=== PATIENT | female | born 1990 | race Caucasian/White ===

== ENCOUNTER 2016-12-13 10:57 | Emergency (ER) | payer BC ==
[~2016-12-13] VITALS: Ht 172.7 cm; Wt 68.0 kg
[2016-12-13 11:07] VITALS: BP 123/71; PULSE 80; RESP 20; TEMP 97.8; O2SAT 96
--- NOTE | 2016-12-13 11:12 | NUR ---
Pt placed to ER waiting room in stable condition.
--- NOTE | 2016-12-13 12:11 | NUR ---
Patient to ER bed 4 to gown for evaluation. Side rails up. Report given to NIC SUAZO.
--- NOTE | 2016-12-13 12:15 | NUR ---
ER at bedside examining patient.
--- NOTE | 2016-12-13 12:20 | NUR ---
Pt presents to Ed c/o urinary retentionx 2wks worsening last 2 days. Pt reports pressure during urination unable to empty bladder. Pt is at 12wks . Pt denies signifcant med hx.
[2016-12-13 13:30] LABS: BILIRUBIN,URINE NEGATIVE (NEGATIVE); BLOOD, URINE NEGATIVE (NEGATIVE); CLARITY/URINE SL HAZY (CLEAR); COLOR,URINE YELLOW (YELLOW); GLUCOSE,URINE NEGATIVE (NEGATIVE); KETONES,URINE NEGATIVE (NEGATIVE); LEUKOCYTE ESTERASE ,URINE NEGATIVE (NEGATIVE); NITRITE, URINE NEGATIVE (NEGATIVE); PH,URINE 5.5 (5.0-8.0); PROTEIN URINE NEGATIVE (NEGATIVE); UROBILINOGEN,URINE 0.2 (0.2-1.0)
--- NOTE | 2016-12-13 13:36 | NUR ---
pt moved to [facility]
[2016-12-13] MEDS ORDERED: PHENAZOPYRIDINE HCL 100 MG TABLET PO ONE (14:00)
--- NOTE | 2016-12-13 14:25 | NUR ---
pt placed back to bed 4
--- NOTE | 2016-12-13 15:23 | NUR ---
dr gant speaking to pt and family regarding results
--- NOTE | 2016-12-13 15:30 | NUR ---
# 16 FR In and Out catheter with use of sterile technique. Immediate return of 1500 ml yellow urine noted. Urine sample collected and sent to lab. Pt tolerated procedure well. DR BANDA STATES TO CLAMP AND REMOVE FULTON Patient unable to toilet self.
--- NOTE | 2016-12-13 15:45 | NUR ---
Pt states she is feeling better, Dr gant aware
--- NOTE | 2016-12-13 15:49 | NUR ---
Patient given written and verbal discharge instructions and verbalizes understanding. ER MD discussed with patient the results and treatment provided. Patient in stable condition. ID arm band removed. Rx of pyridium given. Patient educated on pain management and to follow up with PMD. Pain Scale 0/10. Opportunity for questions provided and answered.
[2016-12-13 15:50] VITALS: BP 118/68; PULSE 72; RESP 16; TEMP 97.8; O2SAT 100
== END 2016-12-13 15:49 | disposition home or self-care (01) ==
LOC: SED 10:57
DX: O26.891 Other specified pregnancy related conditions, first trimester (principal); R33.9 Retention of urine, unspecified; R10.30 Lower abdominal pain, unspecified; Z3A.12 12 weeks gestation of pregnancy
CPT/HCPCS: 76805-TC; 81003; 99285

== ENCOUNTER 2016-12-17 11:40 | Observation (INO) | payer BC ==
[~2016-12-17] VITALS: Ht 172.7 cm; Wt 70.3 kg
[2016-12-17] MEDS ORDERED: PHENAZOPYRIDINE HCL 100 MG TABLET PO ONE (14:30)
[2016-12-17] MEDS ORDERED: CEPHALEXIN 500 MG CAPSULE PO ONE (14:30)
[2016-12-17 16:58] VITALS: BP_SYST 118
== END 2016-12-17 16:45 | disposition home or self-care (01) ==
LOC: SPU 11:40
PROVIDERS: ADMIT Specialist; ATTEND Specialist
DX: O26.891 Other specified pregnancy related conditions, first trimester (principal); N32.89 Other specified disorders of bladder; Z3A.13 13 weeks gestation of pregnancy
CPT/HCPCS: 76805; 81002; 87086; 87186; G0378